=== PATIENT | female | born 1960 | race African-American/Black ===

== ENCOUNTER → 2025-01-10 | Outpatient (REF) | payer MEDICARE | LOC: M LAB REF 17:22 | PROVIDERS: ATTEND Internal Medicine | DX: Z13.89 Encounter for screening for other disorder (principal) ==

== ENCOUNTER → 2025-09-06 | Outpatient (CLI) | payer MEDICARE | LOC: M WUC 11:44 | PROVIDERS: ATTEND Internal Medicine | DX: R06.02 Shortness of breath (principal); R05.9 Cough, unspecified ==